=== PATIENT | female | born 1940 | race African-American/Black ===

== ENCOUNTER 2017-06-30 16:37 | Inpatient (IN) | payer MEDICARE, MEDICAID ==
[2017-06-30 18:15] VITALS: BMI 36.6
[2017-06-30] MEDS ORDERED: Ondansetron HCl/PF 4 MG/2 ML Vial IVP PRN (20:06)
[2017-06-30] MEDS ORDERED: Dextrose 50% Abboject 50 ML SYRINGE SLOW IVP PRN (20:06)
[2017-06-30] MEDS ORDERED: Acetaminophen 325 MG TAB PO PRN (20:06)
[2017-06-30] MEDS ORDERED: Dextrose 5% in Water 1,000 ML IV PRN (20:06)
[2017-06-30] MEDS ORDERED: HumaLOG 300 UNITS/3 ML VIAL SC PRN (20:06)
[2017-06-30] MEDS ORDERED: HYDROcodone/Acetaminophen 5/325 mg Tablet PO PRN (20:06)
[2017-06-30] MEDS ORDERED: Ondansetron ODT 4 MG TAB PO PRN (20:06)
[2017-06-30] MEDS ORDERED: Enoxaparin Sodium 30 MG/0.3 ML SYRINGE SC SCH (20:15)
[2017-06-30] MEDS: Sodium Chloride 0.9% 1,000 ML IV SCH (21:23)
[2017-06-30] MEDS: Famotidine 20 MG TAB PO SCH (21:23)
--- NOTE | 2017-06-30 23:35 | HP ---
DATE OF ADMISSION: 06/30/2017 PRIMARY CARE PHYSICIAN: Paolo Myers M.D. CHIEF COMPLAINT: Cough, congestion, and shortness of breath. HISTORY OF PRESENT ILLNESS: A 76-year-old female with a known history of diabetes and hypertension who presents with shortness of breath, cough, and congestion as stated above. The patient endorses a productive cough of sputum that has been developing over the last 4 days. Denies any fevers, chills, myalgias or arthralgias. The patient is sent to our facility from the emergency department in [place] for noted pneumonia. Unfortunately, I did not receive a report from that facility, nor is there any ER documentation available. At the time of my evaluation, the patient states that she feels "better." Her cough is still present and is still productive. She was taking Robitussin on an outpatient basis which seemed to help initially. The patient denies any active shortness of breath, chest pain or chest pressure at this point in time. REVIEW OF SYSTEMS: As per HPI. Constitutional: No fevers, no chills, no recent weight gains or losses. HEENT: No new headaches, dizziness or lightheadedness, or change in vision. Cardiovascular: No chest pressure or chest pain, left-sided arm numbness or tingling. Respiratory: As per above. No overt wheezing. Gastrointestinal: Denies any nausea, vomiting, abdominal pain, diarrhea or constipation. Musculoskeletal: Denies any myalgias, arthralgias. Genitourinary: No new recent issues with dysuria, urinary quantity, quality or odor. The remainder of the review of systems is otherwise negative. PAST MEDICAL HISTORY: Significant for, 1. Hypertension. 2. Diabetes. 3. Status post bilateral cataract removal. HOME MEDICATIONS: Please see the EMR for full details. The patient denies any recent changes to her chronic regimen of metformin, verapamil. She does state that she was recently given instructions to take Robitussin for the cough by her PCP. ALLERGIES: No known drug allergies. FAMILY HISTORY: Patient denies any known family history of pulmonary issues or recurrent pulmonary infection. SOCIAL HISTORY: Denies any alcohol, illicit drug use, or tobacco use. Her daughter is accompanied her today. The patient states that she would not want a breathing treatment and she would not want chest compressions or shocks. Therefore, she is a DO NOT RESUSCITATE at this point in time. PHYSICAL EXAMINATION: GENERAL: The patient is awake, alert, conversant, oriented to herself, place and location. HEENT: Slightly dry mucous membranes. Equal ocular motions are intact. Normocephalic, atraumatic. CARDIOVASCULAR: S1, S2. No murmurs, rubs or gallops. Pulses 2+ bilateral upper extremities, no pitting pedal edema. RESPIRATORY: Reasonable air movement, slightly coarse on the right side. No wheezes, rales or rhonchi noted. ABDOMEN: Positive bowel sounds, soft, nontender to palpation. NEUROLOGIC: Moving all 4 extremities independently and able to self reposition in the bed. LABORATORY DATA AND IMAGING: WBC 8.6, hemoglobin 14.1, hematocrit 45.1, platelets 139. D-dimer 1.07. Sodium 133, potassium 3.2, chloride 89, bicarbonate 34, BUN 13, creatinine 0.75, glucose 147, calcium 9.4, total bilirubin 0.6, AST 16, ALT 12, alkaline phosphatase 66. Troponin less than 0.01. BNP 98.7, total protein 7.8, albumin 3.5. On 06/30/2017, chest x-ray, impression "cardiomegaly as well as ectasia of the aorta." On 06/30/2012, CTA of the chest, impression "right middle lobe and right lower lobe areas opacity seen on CT." Findings concerning for pneumonia. These areas are not visible on the portable radiograph. ASSESSMENT AND PLAN: A 76-year-old female presenting with congestion, cough, dyspnea on exertion. 1. Patient has imaging findings consistent with pneumonia as the etiology for her constellation of symptoms. The patient has been empirically placed on levofloxacin. Continue with supportive management including supplemental oxygen , nebulizer treatments as needed. Discussed with patient at bedside. 2. Hypertension, stable. Continue home regimen. 3. Diabetes, stable. Continue home regimen. 4. Diet: Diabetic. 5. Activity: As tolerated. DVT prophylaxis with Lovenox. Thank you for asking me to care for your patient. Any questions, concerns, contact me in [facility]. [facility]PITALMaya
[2017-07-01 05:39] LABS: #Eosinphils 0.1 thou/uL (0.0-0.7); #Lymphocytes 1.6 thou/uL (1.20-3.40); #Monocytes 0.7 thou/uL (0.11-0.59); #Neutrophils 5.2 thou/uL (1.40-6.50); %Basophils 0.4 % (0.0-1.0); %Eosinophils 1.3 % (0.0-10.0); %Lymphocytes 20.5 % (21.0-51.0); %Neutrophils 68.9 % (42.0-75.0); Hemoglobin 12.9 g/dL (12.0-16.0); Mean Corpuscular HGB CONC 30.7 g/dL (32.0-36.0); Mean Corpuscular Hemoglobin 26.8 pg (27.0-31.0); Mean Corpuscular Volume 87.3 fl (81.0-99.0); Mean Platelet Volume 8.5 fL (7.4-10.4); Platelet Count 137 thou/uL (130-400); RBC Distribution Width 13.9 % (11.5-14.5); Red Blood Cell (RBC) Count 4.82 mill/uL (4.20-5.40); White Blood Cell (WBC) Count 7.6 thou/uL (4.8-10.8)
[2017-07-01 06:17] LABS: Anion Gap 11 mmol/L (10-20); BUN (Urea Nitrogen) 10 mg/dL (9.8-20.1); Calc. Creatinine Clearance 109 mL/min (70-130); Carbon Dioxide 36 mmol/L (23-31); Estimated GFR-MDRD Greater than 90; Glucose 93 mg/dL (83-110); Potassium 3.6 mmol/L (3.5-5.1)
[2017-07-01 06:37] LABS: Chloride 89 mmol/L (98-107); Sodium 132 mmol/L (136-145)
[2017-07-01] MEDS: metFORMIN 500 MG TAB PO SCH (09:03)
[2017-07-01] MEDS: Famotidine 20 MG TAB PO SCH ×2 (09:04→21:37)
[2017-07-01] MEDS: Enoxaparin Sodium 30 MG/0.3 ML SYRINGE SC SCH (09:05)
[2017-07-01] MEDS: Sodium Chloride 0.9% 1,000 ML IV SCH (10:59)
--- NOTE | 2017-07-01 15:12 | PDOC.PN ---
- Subjective Encounter Start Date: 07/01/17 Encounter Start Time: 14:50 Subjective: f/u for suspected PNA on Rocephin and Zithromax initially now on Levaquin. -: Feels better overall. Less SOB. + productive cough. No fever. - Objective Resuscitation Status: Resuscitation Status DNR:Do Not Resuscitate MAR Reviewed: Yes Vital Signs & Weight: Vital Signs (12 hours) Temp Pulse Resp BP Pulse Ox 07/01/17 12:00 98.0 F 66 18 109/76 97 07/01/17 08:00 97.9 F 81 16 98 07/01/17 07:54 97.9 F 81 16 153/89 H 98 Weight Weight 220 lb I&O: 06/30/17 07/01/17 07/02/17 06:59 06:59 06:59 Intake Total 684 240 Balance 684 240 Result Diagrams: 07/01/17 04:47 07/01/17 04:47 Additional Labs: Accuchecks 07/01/17 07/01/17 06/30/17 11:17 05:17 21:21 POC Glucose 141 H 103 150 H Phys Exam - Physical Examination Constitutional: NAD HEENT: PERRLA, sclera anicteric, oral pharynx no lesions Neck: no JVD, supple diminished in bases few scattered rhonchi Cardiovascular: RRR, no significant murmur Gastrointestinal: soft, non-tender, no distention, positive bowel sounds Musculoskeletal: no edema, pulses present Neurological: normal sensation, moves all 4 limbs Psychiatric: A&O x 3 Skin: normal turgor, cap refill <2 seconds Dx/Plan (1) Pneumonia Code(s): J18.9 - PNEUMONIA, UNSPECIFIED ORGANISM Status: Acute Qualifiers: Laterality: right Lung location: middle lobe of lung Comment: Likely gm + cocci, continue Levaquin, add Duonebs, Mucinex (2) DM II (diabetes mellitus, type II), controlled Code(s): E11.9 - TYPE 2 DIABETES MELLITUS WITHOUT COMPLICATIONS Status: Chronic Comment: Resume Metformin 500mg daily, ISS, ADA (3) HTN (hypertension) Code(s): I10 - ESSENTIAL (PRIMARY) HYPERTENSION Status: Chronic Qualifiers: Hypertension type: essential hypertension Qualified Code(s): I10 - Essential (primary) hypertension Comment: Resume home Verapamil and monitor clinical response. (4) Hyponatremia Code(s): E87.1 - HYPO-OSMOLALITY AND HYPONATREMIA Status: Acute Comment: ? subacute, encourage increased po intake, repeat Na+ level in am - Plan continue antibiotics, respiratory therapy, out of bed/ambulate, DVT proph w/SCDs Stable overall -: Continue Levaquin 500mg IV daily -: Add Duonebs q4h -: Add Mucinex 600mg BID -: Saline lock IVF * AM lab: BMP
[2017-07-01] MEDS: guaiFENesin ER 600 MG TAB PO SCH (21:37)
[2017-07-02 05:59] LABS: Anion Gap 13 mmol/L (10-20); BUN (Urea Nitrogen) 7 mg/dL (9.8-20.1); Calc. Creatinine Clearance 118 mL/min (70-130); Carbon Dioxide 35 mmol/L (23-31); Chloride 89 mmol/L (98-107); Estimated GFR-MDRD Greater than 90; Glucose 98 mg/dL (83-110); Sodium 133 mmol/L (136-145)
[2017-07-02] MEDS: metFORMIN 500 MG TAB PO SCH (08:55)
[2017-07-02] MEDS: Enoxaparin Sodium 30 MG/0.3 ML SYRINGE SC SCH (08:55)
[2017-07-02] MEDS: guaiFENesin ER 600 MG TAB PO SCH ×2 (08:55→23:18)
[2017-07-02] MEDS: Famotidine 20 MG TAB PO SCH ×2 (08:57→23:18)
[2017-07-02] MEDS ORDERED: Benzonatate 100 MG CAP PO PRN (15:07)
--- NOTE | 2017-07-02 15:07 | PDOC.PN ---
- Subjective Encounter Start Date: 07/02/17 Encounter Start Time: 15:00 Subjective: f/u for PNA on Levaquin. Still with persistent coughing. Also had some -: confusion overnight. - Objective Resuscitation Status: Resuscitation Status DNR:Do Not Resuscitate MAR Reviewed: Yes Vital Signs & Weight: Vital Signs (12 hours) Temp Pulse Resp BP Pulse Ox 07/02/17 14:10 81 20 94 L 07/02/17 11:42 98.1 F 80 18 133/73 98 07/02/17 10:34 79 16 95 07/02/17 08:00 98.0 F 79 16 95 07/02/17 07:31 98.0 F 83 17 102/81 95 07/02/17 06:36 81 18 92 L 07/02/17 04:00 99.2 F 93 22 H 166/85 H 93 L Weight Weight 220 lb I&O: 07/01/17 07/02/17 07/03/17 06:59 06:59 06:59 Intake Total 684 600 100 Balance 684 600 100 Result Diagrams: 07/01/17 04:47 07/02/17 04:07 Additional Labs: Accuchecks 07/02/17 07/02/17 07/01/17 11:05 04:08 19:57 POC Glucose 131 H 108 136 H 07/01/17 16:20 POC Glucose 103 Phys Exam - Physical Examination Constitutional: NAD HEENT: PERRLA, oral pharynx no lesions Neck: no JVD, supple scattered coarse sounds bilat Cardiovascular: RRR Gastrointestinal: soft, non-tender, no distention, positive bowel sounds Musculoskeletal: no edema, pulses present Neurological: normal sensation, moves all 4 limbs Psychiatric: A&O x 3 Skin: normal turgor, cap refill <2 seconds Dx/Plan (1) Pneumonia Code(s): J18.9 - PNEUMONIA, UNSPECIFIED ORGANISM Status: Acute Qualifiers: Laterality: right Lung location: middle lobe of lung Comment: Likely gm + cocci, continue Levaquin, add Duonebs, Mucinex, add Tessalon (2) DM II (diabetes mellitus, type II), controlled Code(s): E11.9 - TYPE 2 DIABETES MELLITUS WITHOUT COMPLICATIONS Status: Chronic Comment: Resume Metformin 500mg daily, ISS, ADA (3) HTN (hypertension) Code(s): I10 - ESSENTIAL (PRIMARY) HYPERTENSION Status: Chronic Qualifiers: Hypertension type: essential hypertension Qualified Code(s): I10 - Essential (primary) hypertension Comment: Resume home Verapamil and monitor clinical response. (4) Hyponatremia Code(s): E87.1 - HYPO-OSMOLALITY AND HYPONATREMIA Status: Acute Comment: ? subacute, encourage increased po intake, repeat Na+ level in am - Plan plan discussed w/ family, continue antibiotics, respiratory therapy, out of bed/ ambulate, DVT proph w/SCDs Stable overall -: Continue Levaquin 500mg IV daily -: Antitussives with Mucinex and Tessalon -: OOB/ambulate -: AM lab: BMP * Likely home in 24h
[2017-07-02 19:01] LABS: Bilirubin Negative (Negative); Blood, Urine Negative (Negative); Clarity CLEAR (Clear); Glucose, Urine (Dipstick) Negative (Negative); Leukocyte Negative (Negative); Nitrite Negative (Negative); Protein, Urine (Dipstick) Negative (Neg-Trace); Specific Gravity, Urine 1.008 (1.002-1.036); pH, Urine 6.5 (5.0-9.0)
[2017-07-02 19:04] LABS: Bacteria/HPF None Seen HPF (None Seen); Hyaline Casts/LPF 0-3 HYALINE CAST LPF (0-3 Hyaline); RBC/HPF 0-3 HPF (0-3); Squamous Epithelial 0-3 HPF (0-3); WBC/HPF 0-3 HPF (0-3)
[2017-07-03] MEDS: metFORMIN 500 MG TAB PO SCH (09:07)
[2017-07-03] MEDS: guaiFENesin ER 600 MG TAB PO SCH ×2 (09:07→21:29)
[2017-07-03] MEDS: Enoxaparin Sodium 30 MG/0.3 ML SYRINGE SC SCH (09:08)
[2017-07-03] MEDS: Famotidine 20 MG TAB PO SCH ×2 (09:08→21:29)
--- NOTE | 2017-07-03 13:48 | PDOC.PN ---
- Subjective Encounter Start Date: 07/03/17 Encounter Start Time: 13:40 Subjective: f/u PNA on Levaquin with hypoxia on 2-3L/min NC. Still coughing -: ambulating with walking program. States she wants to go home. - Objective Resuscitation Status: Resuscitation Status DNR:Do Not Resuscitate MAR Reviewed: Yes Vital Signs & Weight: Vital Signs (12 hours) Temp Pulse Resp BP Pulse Ox 07/03/17 11:52 98.1 F 79 22 H 115/76 95 07/03/17 10:13 90 14 07/03/17 08:00 98.4 F 90 14 98 07/03/17 07:00 80 14 07/03/17 05:00 98 F 80 20 144/84 H 97 Weight Weight 220 lb I&O: 07/02/17 07/03/17 07/04/17 06:59 06:59 06:59 Intake Total 600 100 Balance 600 100 Result Diagrams: 07/01/17 04:47 07/02/17 04:07 Additional Labs: Accuchecks 07/03/17 07/03/17 07/02/17 11:26 05:00 20:11 POC Glucose 127 H 108 120 H 07/02/17 16:14 POC Glucose 107 Radiology Reviewed by me: Yes (PCXR - pending) Phys Exam - Physical Examination Constitutional: NAD alert, responsive HEENT: PERRLA, oral pharynx no lesions Neck: no JVD, supple + coarse rhonchi of R lung field Cardiovascular: RRR Gastrointestinal: soft, non-tender, no distention, positive bowel sounds Musculoskeletal: no edema, pulses present Neurological: normal sensation, moves all 4 limbs Skin: normal turgor, cap refill <2 seconds Dx/Plan (1) Acute respiratory failure with hypoxia Code(s): J96.01 - ACUTE RESPIRATORY FAILURE WITH HYPOXIA Status: Acute Comment: Remains hypoxic on RA, titrate O2 supplementation, may need home O2 setup for d/c (2) Pneumonia Code(s): J18.9 - PNEUMONIA, UNSPECIFIED ORGANISM Status: Acute Qualifiers: Laterality: right Lung location: middle lobe of lung Comment: Likely gm + cocci, continue Levaquin, add Duonebs, Mucinex, add Tessalon, check PCXR today (3) DM II (diabetes mellitus, type II), controlled Code(s): E11.9 - TYPE 2 DIABETES MELLITUS WITHOUT COMPLICATIONS Status: Chronic Comment: Resume Metformin 500mg daily, ISS, ADA (4) HTN (hypertension) Code(s): I10 - ESSENTIAL (PRIMARY) HYPERTENSION Status: Chronic Qualifiers: Hypertension type: essential hypertension Qualified Code(s): I10 - Essential (primary) hypertension Comment: Resume home Verapamil and monitor clinical response. (5) Hyponatremia Code(s): E87.1 - HYPO-OSMOLALITY AND HYPONATREMIA Status: Acute Comment: ? subacute, encourage increased po intake, repeat Na+ level in am - Plan plan discussed w/ family, continue antibiotics, social media community manager, respiratory therapy, DVT proph w/SCDs Continue Levaquin -: Continue O2 supplementation, may need home O2 setup -: Continue Duonebs q4h -: Add Solumedrol 40mg IV q6h -: Mucolytics prn * OOB/ambulate * AM lab: CBC * PCXR today
--- NOTE | 2017-07-03 16:18 | RAD ---
UPRIGHT PORTABLE CHEST ONE VIEW: 07/03/17 HISTORY: 76-year-old female with history of pneumonia and hypoxemia. Minimal cardiomegaly. Extensive atherosclerotic ectatic changes of the aorta. minimal patchy mostly l inear and parenchymal changes in the perihilar regions and mid and lower lung zones but stable when c ompared to the 06/30/17 study. No new process. IMPRESSION: Exam limited by large body habitus and poor inspiration. Cardiomegaly with extensive atherosclerotic ectatic changes of the aorta. Patchy stable increased mostly linear and parenchymal changes in the pe rihilar and infrahilar regions. No significant new process. POS: [facility]
[2017-07-04 05:18] LABS: Hemoglobin 13.5 g/dL (12.0-16.0); Hypochromia SLIGHT = 6-15 cells (100X) (0-5/hpf); Lymphocytes 15 % (21-51); MDiff Complete? YES; Mean Corpuscular HGB CONC 30.1 g/dL (32.0-36.0); Mean Corpuscular Hemoglobin 26.5 pg (27.0-31.0); Mean Platelet Volume 7.7 fL (7.4-10.4); Monocytes 3 % (0-10); Neutrophil 82 % (42-75); PLT Morphology Comment Appears Adequate; Platelet Count 181 thou/uL (130-400); RBC Distribution Width 13.5 % (11.5-14.5); White Blood Cell (WBC) Count 4.6 thou/uL (4.8-10.8)
[2017-07-04] MEDS: metFORMIN 500 MG TAB PO SCH (08:18)
[2017-07-04] MEDS: Enoxaparin Sodium 30 MG/0.3 ML SYRINGE SC SCH (08:19)
[2017-07-04] MEDS: guaiFENesin ER 600 MG TAB PO SCH (08:19)
[2017-07-04] MEDS: Famotidine 20 MG TAB PO SCH (08:19)
[2017-07-04 08:47] VITALS: BP 136/89; TEMP 97.8
--- NOTE | 2017-07-04 10:41 | PDOC.EVN ---
Event Note - Event Note Event Note: Pt remains hypoxic on Room Air despite adequate treatment for community acquired pneumonia. Current O2 sats in 88% range on RA. Plan for home O2 setup on discharge.
--- NOTE | 2017-07-04 12:00 | DIS ---
DATE OF ADMISSION: 06/30/2017 DATE OF DISCHARGE: 07/04/2017 DISCHARGE DIAGNOSES: 1. Right middle lobe community-acquired pneumonia, likely gram positive cocci, improved. 2. Acute hypoxic respiratory failure secondary to #1, persistent. 3. Diabetes mellitus type 2, stable. 4. Hypertension, stable. 5. Hyponatremia, mild. CONSULTATIONS: None. PERTINENT LABORATORY DATA AND X-RAY FINDINGS: Sodium ranged between 132-133. CBC showed white blood cell count ranging between 4.6-7.6, hemoglobin ranged between 12.9-13.5. Portable chest x-ray dated 07/03/2017 showed a limited exam due to large body habitus and poor inspiratory effort. Patchy dens ities noted in the perihilar regions and infrahilar regions. No significant new process identified. HOSPITAL COURSE: Patient was admitted to the medical floor after presenting with cough, congestion, and shortness of breath. The patient was noted on chest imaging with infiltrate of the right middle lobe consistent with pneumonia. The patient was placed on IV Levaquin and treated with this regimen throughout the hospital course. The patient also received bronchodilator therapy with DuoNebs, mucol ytics and Solu-Medrol. The patient remained afebrile with normal white blood cell count, ambulating in the room without difficulty. The patient was noted with a persistent hypoxemia with O2 saturation s in the mid 80% range on room air at rest and during ambulation despite adequate therapy and treatme nt for the pneumonia. The patient without prior oxygen requirements at home or previous diagnosis re quiring oxygen. The patient overall clinically stabilizing with IV Levaquin and pulmonary supportive measures. On the day of discharge, the patient's lungs with mild rhonchi in the right lung base. C ardiovascular exam showed normal S1 and S2. Abdominal exam was unremarkable and patient exhibited no lower extremity edema. Room air O2 saturations noted at 88% with ambulatory room air saturation at 85%. The patient will be setup for home oxygen on discharge. Overall, patient clinically stable and ready for discharge on 07/04/2017. DISCHARGE MEDICATIONS: 1. Levaquin 500 mg 1 tab p.o. daily x7 days. 2. Enteric coated aspirin 81 mg 1 tab p.o. daily. 3. Lipitor 20 mg one tablet p.o. daily. 4. Tessalon Perles 100 mg p.o. q.4-6 hours p.r.n. 5. Coreg 25 mg p.o. b.i.d. 6. Mucinex ER 600 mg p.o. b.i.d. 7. Metformin 500 mg p.o. q.a.m. 8. Verapamil ER 240 mg p.o. b.i.d. 9. Methyldopa/hydrochlorothiazide 250/25 mg 1 tab p.o. b.i.d. 10. Prednisone 10 mg 2 tabs p.o. b.i.d. x3 days, followed by 3 tabs p.o. daily x 3 days, followed by 2 tabs p.o. daily x 3 days, followed by 1 tab p.o. daily x3 days. FOLLOWUP: The patient will follow up with her primary care provider, Dr. Stepan Myers within 7 days of discharge. CONDITION ON DISCHARGE: Stable. ACTIVITY: Ad pattie. DIET: Heart healthy and ADA. SPECIAL INSTRUCTIONS: Patient will be set up with home oxygen at 3 liters per minute by nasal cannul a continuously. The patient with oxygen requirement despite adequate treatment for current pneumonia . DIET: ADA and heart healthy. CODE STATUS: FULL. DISPOSITION: Home on 07/04/2017. Total time preparing and coordinating discharge is 36 minutes.
== END 2017-07-04 14:16 | disposition home or self-care (01) | DRG 193 ==
LOC: T4-B 17:34 → EDBD 17:34
PROVIDERS: ADMIT Internal Medicine; ATTEND Internal Medicine
DX: J15.9 Unspecified bacterial pneumonia (principal); J96.01 Acute respiratory failure with hypoxia; E87.1 Hypo-osmolality and hyponatremia; I10 Essential (primary) hypertension; E11.9 Type 2 diabetes mellitus without complications; Z99.81 Dependence on supplemental oxygen; Z79.84 Long term (current) use of oral hypoglycemic drugs; E87.6 Hypokalemia
CPT/HCPCS: 36415; 36416; 71045; 80048; 81001; 85007; 85025; 85027; 94640; J1650; J1956; J2920; J7620